=== PATIENT | female | born 1945 | race Caucasian/White ===

== ENCOUNTER 2020-05-13 12:06 | Inpatient (IN) | payer MEDICARE, BC ==
[~2020-05-13] VITALS: Ht 162.6 cm; Wt 63.9 kg
[2020-05-13 13:24] LABS: Basophils # (auto) 0 10 ^3/uL (0-0.2); Basophils % (auto) 0.8 % (0.0-2.0); Eosinophils # (auto) 0.1 10 ^3/uL (0-0.8); Eosinophils % (auto) 2.3 % (0.0-7.0); Hematocrit 38.7 % (36.0-46.0); Hemoglobin 12.7 g/dL (12.2-16.2); Lymphocytes % (auto) 19.8 % (10.0-50.0); Mean Corpuscular Hemoglobin 27.3 pg (28.0-32.0); Mean Corpuscular Hgb Conc. 32.7 g/dL (32.0-36.0); Mean Corpuscular Volume 83.6 fL (80.0-100.0); Monocytes # (auto) 0.6 10 ^3/uL (0-1.3); Monocytes % (auto) 10.7 % (0.0-12.0); Neutrophils # (auto) 3.5 10 ^3/uL (1.6-8.6); Neutrophils % (auto) 66.4 % (37.0-80.0); Nucleated Red Blood Cells % 0.2 %; Platelet Count (auto) 339 10^3/uL (140-450); Red Blood Cells 4.63 10^6/uL (4.0-5.20); Red Cell Distribution Width 15.2 % (11.8-14.3); White Blood Cell 5.2 10^3/uL (4.4-10.8)
[2020-05-13 13:52] LABS: Albumin 3.1 g/dL (3.4-5.0); Anion Gap 6 (5-15); Blood Urea Nitrogen 25 mg/dL (7-18); Carbon Dioxide 28 mmol/L (21-32); Chloride 95 mmol/L (98-107); Glucose 69 mg/dL (74-106); Magnesium 2.9 mg/dL (1.6-2.6); Potassium 3.8 mmol/L (3.5-5.1); Sodium 129 mmol/L (136-145)
[2020-05-13 13:58] LABS: Alanine Aminotransferase 20 U/L (13-56); Alkaline Phosphatase 86 U/L (45-117); Aspartate Aminotransferase 27 U/L (15-37); Bilirubin, Total 0.6 mg/dL (0.2-1.0); GFR African American 47 mL/min; GFR Non-African American 39 mL/min; Total Protein 7.2 g/dL (6.4-8.2)
[2020-05-13] MEDS ORDERED: hydrALAZINE HCL 20 MG/ML VL IV PRN (14:45)
[2020-05-13] MEDS ORDERED: NITROGLYCERIN 0.4 MG SL TAB SL PRN (14:45)
[2020-05-13] MEDS ORDERED: MORPHINE SULF INJ 2 MG/ML SYRINGE 1ML IV PRN (14:45)
[2020-05-13] MEDS ORDERED: LORazepam 2MG/ML-1ML VIAL IV PRN (14:45)
[2020-05-13] MEDS ORDERED: DOCUSATE CALCIUM 240 MG CAP PO PRN (14:45)
[2020-05-13] MEDS ORDERED: ONDANSETRON HCL 4 MG/2 ML VIAL IV PRN (14:45)
[2020-05-13] MEDS ORDERED: diphenhdrAMINE HCL 50 MG/1 ML VL IV PRN (14:45)
[2020-05-13 15:35] VITALS: BP 155/85
[2020-05-13] MEDS: D5W/SOD CHLO 0.9% 1,000 ML IV SCH (15:57)
[2020-05-13] MEDS ORDERED: ENALAPRILAT 1.25 MG/ML-1ML VIAL IV PRN (17:45)
[2020-05-13] MEDS ORDERED: cloNIDine 0.2 mg/24hr 7DAY PATCH TD SCH (17:45)
[2020-05-13] MEDS ORDERED: cloNIDine 0.1 mg/24hr 7 DAY PATCH TD ONE (17:45)
[2020-05-13] MEDS: BUDESONIDE (INHALATION) 0.5 MG/2 ML NEB NEB SCH (18:27)
[2020-05-13] MEDS: ALBUTEROL SULF 2.5 MG/0.5ML(0.5%) NEB SOLN NEB PRN (18:27)
[2020-05-13] MEDS ORDERED: ESTR1TAB3 PO (18:39)
[2020-05-13] MEDS ORDERED: NAP500T PO (18:39)
[2020-05-13] MEDS ORDERED: BISO5TAB44 PO (18:39)
[2020-05-13] MEDS ORDERED: CLON0.1D TD (18:39)
[2020-05-13] MEDS ORDERED: CYCL10TA6 PO (18:39)
[2020-05-13] MEDS ORDERED: GABA300C10 PO (18:39)
[2020-05-13] MEDS ORDERED: IRBE150T57 PO (18:39)
[2020-05-13] MEDS ORDERED: UMEC1AER IN (18:41)
[2020-05-13] MEDS ORDERED: OMEP20TA PO (18:41)
[2020-05-13] MEDS ORDERED: BIOT5TAB3 PO (18:41)
[2020-05-13] MEDS ORDERED: DONE5TAB31 PO (18:41)
[2020-05-13] MEDS ORDERED: hydrALAZINE HCL 10 MG TAB PO ONE (19:30)
[2020-05-13 19:39] VITALS: BP 183/92
[2020-05-13 20:09] LABS: Cholesterol 252 mg/dL (< 200); HDL Cholesterol 49 mg/dL (40-59); LDL Cholesterol 181 mg/dL (< 100); Triglycerides 195 mg/dL (< 150)
[2020-05-13] MEDS: CYCLOBENZAPRINE HCL 10 MG TAB PO SCH (21:26)
[2020-05-13] MEDS: ATORVASTATIN 20 MG TAB PO SCH (21:27)
[2020-05-13 22:00] VITALS: BP 188/92
[2020-05-13 23:00] VITALS: BP 144/72
[2020-05-14 00:04] LABS: Urine Bacteria FEW /hpf (None Seen); Urine Blood TRACE /uL (Negative); Urine Specific Gravity 1.007 (1.001-1.035); Urine WBC 1 /hpf (0 - 5)
[2020-05-14] MEDS: NAPROXEN 500 MG TAB PO PRN ×2 (01:14→09:34)
[2020-05-14] MEDS ORDERED: ASPI-543 PO (01:30)
[2020-05-14] MEDS ORDERED: ESTR1TAB3 PO (02:28)
[2020-05-14] MEDS ORDERED: CYCL10TA6 PO (02:28)
[2020-05-14] MEDS ORDERED: UMEC1AER IN (02:28)
[2020-05-14] MEDS ORDERED: NAP500T PO (02:28)
[2020-05-14] MEDS ORDERED: OMEP20TA PO (02:28)
[2020-05-14] MEDS ORDERED: DONE5TAB31 PO (02:28)
[2020-05-14] MEDS ORDERED: CLON0.1D TD (02:28)
[2020-05-14] MEDS ORDERED: GABA300C10 PO (02:28)
[2020-05-14] MEDS ORDERED: ASPI-231 PO (02:28)
[2020-05-14] MEDS ORDERED: IRBE150T57 PO (02:28)
[2020-05-14] MEDS ORDERED: BISO5TAB44 PO (02:28)
[2020-05-14] MEDS: D5W/SOD CHLO 0.9% 1,000 ML IV SCH ×2 (04:37→17:25)
[2020-05-14 05:00] VITALS: BP 145/81
[2020-05-14 06:22] LABS: Basophils # (auto) 0 10 ^3/uL (0-0.2); Basophils % (auto) 0.9 % (0.0-2.0); Eosinophils # (auto) 0.1 10 ^3/uL (0-0.8); Eosinophils % (auto) 2.7 % (0.0-7.0); Hematocrit 40.1 % (36.0-46.0); Hemoglobin 13.2 g/dL (12.2-16.2); Lymphocytes # (auto) 1.1 10 ^3/uL (0.4-5.4); Lymphocytes % (auto) 21.5 % (10.0-50.0); Mean Corpuscular Hemoglobin 27.5 pg (28.0-32.0); Mean Corpuscular Hgb Conc. 32.9 g/dL (32.0-36.0); Mean Corpuscular Volume 83.7 fL (80.0-100.0); Monocytes # (auto) 0.6 10 ^3/uL (0-1.3); Monocytes % (auto) 11.1 % (0.0-12.0); Neutrophils # (auto) 3.4 10 ^3/uL (1.6-8.6); Neutrophils % (auto) 63.8 % (37.0-80.0); Nucleated Red Blood Cells % 0.2 %; Platelet Count (auto) 345 10^3/uL (140-450); Red Blood Cells 4.79 10^6/uL (4.0-5.20); Red Cell Distribution Width 15.6 % (11.8-14.3); White Blood Cell 5.3 10^3/uL (4.4-10.8)
[2020-05-14] MEDS: ALBUTEROL SULF 2.5 MG/0.5ML(0.5%) NEB SOLN NEB PRN ×2 (06:34→18:21)
[2020-05-14] MEDS: BUDESONIDE (INHALATION) 0.5 MG/2 ML NEB NEB SCH ×2 (06:34→18:21)
[2020-05-14 06:35] LABS: Albumin 3.2 g/dL (3.4-5.0); Calcium 9.3 mg/dL (8.5-10.1); Potassium 3.6 mmol/L (3.5-5.1)
[2020-05-14 06:39] LABS: BUN/Creatinine Ratio 17.9; Bilirubin, Total 0.5 mg/dL (0.2-1.0); Partial Thromboplastin Time 29.3 sec (23.0-31.2); Total Protein 7.4 g/dL (6.4-8.2)
[2020-05-14 06:43] LABS: Cholesterol 271 mg/dL (< 200)
[2020-05-14 06:47] LABS: HDL Cholesterol 48 mg/dL (40-59); LDL Cholesterol 176 mg/dL (< 100); Triglycerides 240 mg/dL (< 150)
[2020-05-14 09:00] VITALS: BP 160/80
[2020-05-14] MEDS: GABAPENTIN 300 MG CAP PO SCH (09:14)
[2020-05-14] MEDS: ENOXAPARIN SOD 40 MG/0.4 ML SYRINGE SC SCH (09:15)
[2020-05-14] MEDS: CLOPIDOGREL BISULFATE 75 MG TAB PO SCH (09:16)
[2020-05-14] MEDS: CYCLOBENZAPRINE HCL 10 MG TAB PO SCH ×3 (09:17→21:23)
[2020-05-14] MEDS: ASPirin-EC 81 mg tab PO SCH (09:17)
[2020-05-14] MEDS ORDERED: PANTOPRAZOLE 40 MG/10 ML VIAL INJ IV SCH (10:00)
[2020-05-14 13:00] VITALS: BP 127/81
[2020-05-14] MEDS: cloNIDine HCL 0.1 MG TAB PO PRN (15:51)
[2020-05-14 17:00] VITALS: BP 176/81
[2020-05-14] MEDS: ATORVASTATIN 20 MG TAB PO SCH (21:24)
[2020-05-14 22:00] VITALS: BP 123/72
[2020-05-15 05:00] VITALS: BP 153/75
[2020-05-15] MEDS: NAPROXEN 500 MG TAB PO PRN ×2 (05:42→21:58)
[2020-05-15] MEDS: cloNIDine HCL 0.1 MG TAB PO PRN (05:43)
[2020-05-15] MEDS: D5W/SOD CHLO 0.9% 1,000 ML IV SCH (06:45)
[2020-05-15 09:54] VITALS: BP 143/78
[2020-05-15] MEDS: CLOPIDOGREL BISULFATE 75 MG TAB PO SCH (10:00)
[2020-05-15] MEDS: BUDESONIDE (INHALATION) 0.5 MG/2 ML NEB NEB SCH ×2 (10:00→21:46)
[2020-05-15] MEDS: ASPirin-EC 81 mg tab PO SCH (10:00)
[2020-05-15] MEDS ORDERED: PANTOPRAZOLE 40 MG TAB PO ONE (10:30)
[2020-05-15] MEDS: ENOXAPARIN SOD 40 MG/0.4 ML SYRINGE SC SCH (10:41)
[2020-05-15] MEDS: GABAPENTIN 300 MG CAP PO SCH (10:41)
[2020-05-15] MEDS: CYCLOBENZAPRINE HCL 10 MG TAB PO SCH ×2 (10:41→21:55)
[2020-05-15 13:00] VITALS: BP 127/71
[2020-05-15 16:57] VITALS: BP 125/73
[2020-05-15] MEDS: ALBUTEROL SULF 2.5 MG/0.5ML(0.5%) NEB SOLN NEB PRN (21:46)
[2020-05-15 22:00] VITALS: BP 165/80
[2020-05-15] MEDS: ATORVASTATIN 20 MG TAB PO SCH (22:00)
[2020-05-15 22:30] VITALS: BP 152/78
[2020-05-16 05:00] VITALS: BP 162/84
[2020-05-16 06:44] VITALS: BP 150/78
[2020-05-16] MEDS: BUDESONIDE (INHALATION) 0.5 MG/2 ML NEB NEB SCH ×2 (09:30→21:39)
[2020-05-16] MEDS: ALBUTEROL SULF 2.5 MG/0.5ML(0.5%) NEB SOLN NEB PRN ×2 (09:30→21:39)
[2020-05-16 09:41] LABS: Folate (Folic Acid) > 24.00 ng/mL (5.38-24)
[2020-05-16] MEDS: cloNIDine HCL 0.1 MG TAB PO PRN (09:42)
[2020-05-16] MEDS: GABAPENTIN 300 MG CAP PO SCH ×2 (09:42→22:02)
[2020-05-16] MEDS: CYCLOBENZAPRINE HCL 10 MG TAB PO SCH ×2 (09:42→22:02)
[2020-05-16] MEDS: PANTOPRAZOLE 40 MG TAB PO SCH (09:42)
[2020-05-16] MEDS: ENOXAPARIN SOD 40 MG/0.4 ML SYRINGE SC SCH (09:43)
[2020-05-16] MEDS: CLOPIDOGREL BISULFATE 75 MG TAB PO SCH (09:45)
[2020-05-16] MEDS: ASPirin-EC 81 mg tab PO SCH (09:45)
[2020-05-16 12:43] VITALS: BP 142/79
[2020-05-16 17:00] VITALS: BP 130/73
[2020-05-16 22:00] VITALS: BP 165/77
[2020-05-16] MEDS: ATORVASTATIN 20 MG TAB PO SCH (22:00)
[2020-05-17 05:00] VITALS: BP 142/84
[2020-05-17] MEDS: GABAPENTIN 300 MG CAP PO SCH (05:50)
[2020-05-17] MEDS: ASPirin-EC 81 mg tab PO SCH (08:21)
[2020-05-17] MEDS: CLOPIDOGREL BISULFATE 75 MG TAB PO SCH (08:21)
[2020-05-17] MEDS: PANTOPRAZOLE 40 MG TAB PO SCH (08:22)
[2020-05-17] MEDS: cloNIDine HCL 0.1 MG TAB PO PRN (08:24)
[2020-05-17 09:00] VITALS: BP 171/94
[2020-05-17] MEDS: CYCLOBENZAPRINE HCL 10 MG TAB PO SCH (09:40)
[2020-05-17] MEDS: ENOXAPARIN SOD 40 MG/0.4 ML SYRINGE SC SCH (09:40)
[2020-05-17] MEDS: BUDESONIDE (INHALATION) 0.5 MG/2 ML NEB NEB SCH (09:59)
[2020-05-17 10:12] VITALS: BP 149/82
== END 2020-05-17 11:32 | disposition home or self-care (01) | DRG 64 ==
LOC: ER 12:06 → TELE 12:07 → TELE-CENTR 19:53
PROVIDERS: ADMIT Family Medicine; ATTEND Family Medicine
DX: I63.9 Cerebral infarction, unspecified (principal); I77.70 Dissection of unspecified artery; E87.1 Hypo-osmolality and hyponatremia; G45.3 Amaurosis fugax; H53.8 Other visual disturbances; J44.9 Chronic obstructive pulmonary disease, unspecified; E16.2 Hypoglycemia, unspecified; E88.09 Other disorders of plasma-protein metabolism, not elsewhere classified; H02.402 Unspecified ptosis of left eyelid; N18.9 Chronic kidney disease, unspecified; E78.00 Pure hypercholesterolemia, unspecified; E78.5 Hyperlipidemia, unspecified; G43.109 Migraine with aura, not intractable, without status migrainosus; R00.1 Bradycardia, unspecified; M54.5 Low back pain; F03.90 Unspecified dementia, unspecified severity, without behavioral disturbance, psychotic disturbance, mood disturbance, and anxiety; F17.200 Nicotine dependence, unspecified, uncomplicated; G89.29 Other chronic pain; I12.9 Hypertensive chronic kidney disease with stage 1 through stage 4 chronic kidney disease, or unspecified chronic kidney disease; I25.10 Atherosclerotic heart disease of native coronary artery without angina pectoris; I25.2 Old myocardial infarction; I44.7 Left bundle-branch block, unspecified; M41.9 Scoliosis, unspecified; Z79.02 Long term (current) use of antithrombotics/antiplatelets; Z79.82 Long term (current) use of aspirin; Z79.899 Other long term (current) drug therapy; Z82.3 Family history of stroke; Z82.5 Family history of asthma and other chronic lower respiratory diseases; Z83.3 Family history of diabetes mellitus; Z85.118 Personal history of other malignant neoplasm of bronchus and lung; Z86.73 Personal history of transient ischemic attack (TIA), and cerebral infarction without residual deficits; Z90.49 Acquired absence of other specified parts of digestive tract; Z90.710 Acquired absence of both cervix and uterus; Z90.13 Acquired absence of bilateral breasts and nipples; Z85.3 Personal history of malignant neoplasm of breast; Z88.1 Allergy status to other antibiotic agents; Z88.8 Allergy status to other drugs, medicaments and biological substances
CPT/HCPCS: 36415; 70450; 70545; 70551; 71045; 80053; 80061; 81001; 82607; 82746; 83036; 83735; 84443; 84484; 85025; 85610; 85730; 93005; 93306; 93886; 94640; 96360; C9113; G0378; J7042

== ENCOUNTER 2020-05-18 15:47 | Emergency (ER) | payer MEDICARE, BC ==
[~2020-05-18] VITALS: Ht 160 cm; Wt 63.5 kg
[~2020-05-18 15:47] MED LIST: ASPI-231 PO; ASPI-543 PO; BIOT5TAB3 PO; BISO5TAB44 PO; CLON0.1D TD; CYCL10TA6 PO; DONE5TAB31 PO; ESTR1TAB3 PO; GABA300C10 PO; IRBE150T57 PO; NAP500T PO; OMEP20TA PO; UMEC1AER IN
[2020-05-18 16:03] VITALS: BP 134/92
[2020-05-18 18:22] LABS: Basophils # (auto) 0 10 ^3/uL (0-0.2); Basophils % (auto) 0.9 % (0.0-2.0); Eosinophils # (auto) 0.2 10 ^3/uL (0-0.8); Eosinophils % (auto) 4.6 % (0.0-7.0); Hematocrit 39.5 % (36.0-46.0); Hemoglobin 12.9 g/dL (12.2-16.2); Lymphocytes # (auto) 1.1 10 ^3/uL (0.4-5.4); Lymphocytes % (auto) 22.2 % (10.0-50.0); Mean Corpuscular Hemoglobin 27.4 pg (28.0-32.0); Mean Corpuscular Hgb Conc. 32.8 g/dL (32.0-36.0); Mean Corpuscular Volume 83.7 fL (80.0-100.0); Monocytes # (auto) 0.4 10 ^3/uL (0-1.3); Monocytes % (auto) 8.7 % (0.0-12.0); Neutrophils # (auto) 3.1 10 ^3/uL (1.6-8.6); Neutrophils % (auto) 63.6 % (37.0-80.0); Nucleated Red Blood Cells % 0.1 %; Platelet Count (auto) 296 10^3/uL (140-450); Red Blood Cells 4.72 10^6/uL (4.0-5.20); Red Cell Distribution Width 15.7 % (11.8-14.3); White Blood Cell 4.9 10^3/uL (4.4-10.8)
[2020-05-18 18:41] LABS: Albumin 3.2 g/dL (3.4-5.0); BUN/Creatinine Ratio 20.3; Calcium 9.6 mg/dL (8.5-10.1)
[2020-05-18 18:44] LABS: Bilirubin, Total 0.6 mg/dL (0.2-1.0); Total Protein 7.4 g/dL (6.4-8.2)
== END 2020-05-18 23:00 | disposition left against medical advice (07) ==
LOC: ER 15:47
DX: H02.402 Unspecified ptosis of left eyelid (principal); Z53.21 Procedure and treatment not carried out due to patient leaving prior to being seen by health care provider
CPT/HCPCS: 36415; 70450; 80053; 85025